=== PATIENT | female | born 1970 | race American Indian/Alaskan Native ===

== ENCOUNTER 2021-03-06 06:48 | Day surgery (SDC) | payer BC, OTHER ==
--- NOTE | 2021-03-03 12:16 | Anesthesia Consultation ---
<NANDO COLIN - Last Filed: 03/03/21 12:14> Anesthesia Consult and Med Hx Date of service: 03/03/21 - Airway Anesthetic Teeth Evaluation: Good ROM Head & Neck: Adequate Mental/Hyoid Distance: Adequate Mallampati Class: Class II - Pulmonary Exam CTA: Yes - Cardiac Exam Cardiac Exam: RRR - Pre-Operative Health Status ASA Pre-Surgery Classification: ASA2 Proposed Anesthetic Plan: General Nerve Block: TAP block - Central Nervous System CVA: Yes (6 years ago, unknown cause, heart,carotid cleared, no histroy of clots) Hx Psychiatric Problems: No - Other Systems Hx Alcohol Use: Yes (Occas) Hx Cancer: No <GINNA CABRERA - Last Filed: 03/06/21 07:53> Anesthesia Consult and Med Hx - Airway Anesthetic Teeth Evaluation: Good ROM Head & Neck: Adequate Mental/Hyoid Distance: Adequate Mallampati Class: Class II Intubation Access Assessment: Probably Good - Pre-Operative Health Status ASA Pre-Surgery Classification: ASA3 Proposed Anesthetic Plan: General Nerve Block: TAP - Pulmonary Hx Smoking: No - Cardiovascular System Hx Hypertension: No (BP elevated in preop; no hx HTN per patient) Hx Heart Attack/AMI: No - Central Nervous System 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
[2021-03-03 13:19] LABS: Basophils # (Auto) 0.1 K/mm3 (0.0-0.1); Basophils % (Auto) 1.1 % (0.0-1.8); Eosinophils # (Auto) 0.1 K/mm3 (0.0-0.4); Hematocrit 40.4 % (30.3-42.9); Hemoglobin 13.1 gm/dl (10.1-14.3); Lymphocytes # (Auto) 2.1 K/mm3 (1.2-5.4); Lymphocytes % (Auto) 41.5 % (13.4-35.0); Mean Corpuscular HGB Conc 32 % (30-34); Mean Corpuscular Volume 87 fl (79-97); Monocytes # (Auto) 0.4 K/mm3 (0.0-0.8); Platelet Count 300 K/mm3 (140-440); Red Blood Count 4.62 M/mm3 (3.65-5.03); Red Cell Distribution Width 14.9 % (13.2-15.2)
[2021-03-03 13:40] LABS: BUN/Creatinine Ratio 13; Blood Urea Nitrogen 10 mg/dL (7-17); Calcium 9.6 mg/dL (8.4-10.2); Hemolysis Index 3
--- NOTE | 2021-03-05 15:28 | History and Physical Report ---
History of Present Illness Date of examination: 03/03/21 History of present illness: Patient has been reassessed/reevaluated. H&P has been reviewed. No interval changes. This is a 50 years old female who presents with menstrual disorder. The symptoms began 6-12 months ago. She complains of irregular menses, heavy bleeding, dysmenorrhea, clotting, history of fibroids and cramping, but denies mid-cycle spotting, lack of menses, history of ovarian cysts, history of thyroid disease, history of PCOS, history of bleeding disorder, lightheadedness and fatigue. Patient reports that for pain she uses OCP's. The patient's uterine fibroids produces complains of abdominal pain, pelvic pain and pelvic pressure. Treatment tried to date includes NSAIDs. Patient's work up has included a transvaginal ultrasound which revealed large leiomyoma. Patient's symptoms when present disrupts her normal daily activities Patient desires definitive treatment ] Vital Signs: Patient Profile: 50 Years Old Female Height: 64 inches (162.56 cm) Weight: 208 pounds BMI: 35.70 Temp: 96.0 degrees F BP sittin / 70 (left arm) Current Method of Contraception: BTL Past History : 1 Term Births: 1 Premature Births: 0 Living Children: 1 Para: 1 Mult. Births: 0 Prev : 1 Aborta: 0 Elect. Ab: 0 Spont. Ab: 0 Ectopics: 0 # 1 Delivery date: 1995 Delivery type: Current Allergies: No known allergies Past Medical History: C V A / Stroke on OCP's BRCA negative Fibroids Past Surgical History: Tubal Ligation (10/06/2011) Family History Summary: - Has No Family History of Uterine Cancer - Entered On: 01/30/2017 - Has No Family History of Small Bowel Cancer - Entered On: 01/30/2017 Has No Family History of Pancreatic Cancer - Entered On: 01/30/2017 Other Family Member - Has No Family History of Ovarvian Cancer - Entered On: 01/30/2017 Other Family Member - Has No Family History of Kidney/Urinary Tract Cancer - Entered On: 01/30/2017 Other Family Member - Has No Family History of DVT/PE on OCP - Entered On: 01/30/2017 Other Family Member - Has No Family History of Colon Cancer - Entered On: 01/30/2017 Other Family Member - Has No Family History of Brain Cancer - Entered On: 01/30/2017 Other Family Member - Has No Family History of Biliary Tract Cancer - Entered On: 01/30/2017 MGM - Has Family History Breast Cancer - mggm, - Entered On: 09/08/2013 Aunt - Has Family History Breast Cancer - maternal and paternal - Entered On: 09/08/2013 General Comments - FH: No Family History of Colon Cancer No Family History of Ovarvian Cancer Social History: Patient is single Smoking History: Patient has never smoked. Risk Factors Tobacco use: never Passive smoke exposure: no HIV high risk behavior: no Seatbelt use: 100 % [employer] History Operations: Tubal Ligation (10/06/2011) Abnormal PAP: positive Uterine Anomaly: positive fibroids Infection History HIV Risk Eval: no Personal hx. of genital herpes: yes Hx of STD: HSV Review of Systems General Complains of fatigue. Denies fever, chills, sweats, anorexia, weakness, malaise, weight loss and sleep disorder. Complains of menorrhagia, pelvic pain and painful periods. Denies vaginal discharge, incontinence, dysuria, hematuria, urinary frequency, amenorrhea, abnormal vaginal bleeding, genital sores, decreased libido, painful sex, urinary urgency, hot flashes, vaginal dryness, vaginal itching and vaginal odor. CV Denies chest pains, palpitations, syncope, dyspnea on exertion, orthopnea, PND and peripheral edema. Resp Denies cough, dyspnea at rest, excessive sputum, hemoptysis, wheezing and pleurisy. GI Denies nausea, vomiting, diarrhea, constipation, change in bowel habits, abdominal pain, melena, hematochezia, jaundice, gas/bloating, indigestion/heartburn, dysphagia and odynophagia. Breast Denies left breast lump, right breast lump, nipple discharge, bloody discharge from nipple, breast pain, abnormal mammogram and breast enlargement. Psych Denies depression, anxiety, irritability and mood swings. Past History Past Medical History: other (SEE HPI) Past Surgical History: Other (SEE HPI) Social history: full code, other (SEE HPI) Family history: other (SEE HPI) Medications and Allergies Allergies Allergy/AdvReac Type Severity Reaction Status Date / Time No Known Allergies Allergy Unverified 02/25/21 15:43 Home Medications Medication Instructions Recorded Confirmed Last Taken Type Aspirin [Adult Aspirin] 81 mg PO DAILY 02/25/21 02/25/21 02/04/21 History Active Meds: Active Medications Acetaminophen (Acetaminophen 500 Mg Tab) 1,000 mg PO PREOP JESSY Celecoxib (Celecoxib 200 Mg Cap) 200 mg PO PREOP NR Stop: 03/06/21 23:59 Fentanyl (Fentanyl 100 Mcg/2 Ml Inj) 100 mcg IV ONCE PRN PRN Reason: sedation for nerve block Gabapentin (Gabapentin 300 Mg Cap) 300 mg PO PREOP NR Stop: 03/06/21 23:59 Cefazolin Sodium (Ancef/Sterile Water 2 Gm/20 Ml) 2 gm in 20 mls @ 80 mls/hr IV PREOP NR; Protocol Stop: 03/06/21 20:00 Lactated Ringer's (Lactated Ringers) 1,000 mls @ 100 mls/hr IV DIRECT JESSY Stop: 03/06/21 23:59 Methocarbamol 1,000 mg/ Sodium (Chloride) 260 mls @ 250 mls/hr IV PREOP JESSY Midazolam HCl (Midazolam 2 Mg/2 Ml Inj) 2 mg IV PREOP NR Stop: 03/06/21 23:59 Scopolamine (Scopolamine Transdermal Patch 72 Hr) 1 each TD PREOP NR Stop: 03/06/21 23:59 Review of Systems Constitutional: other (SEE HPI) Exam - Physical Exam Narrative exam: HEENT: normocephalic, no lesions or deformities Skin no ulcers, xanthomas Chest: respiratory effort normal, clear to auscultation Breasts: skin/areolae normal, no masses, no nipple discharge, no erythema/warmth/tenderness, and axillae normal. CV: regular, normal S1-S2, no murmur, no rub, no gallop Abdomen: obese normal bowel sounds, soft, nontender, no HSM Well healed pfa nnenstiel scar Neuro: no gross anomalities Extremities: no clubbing, cyanosis, or edema [employer] Exams Vulva/Vagina: No lesions, normal BUS, normal rugae Cervix: normal appearance, no lesions, no discharge Uterus: Enlarged uterus 12 to 14 weeks size Adnexae: no masses or tenderness Rectovaginal: exam defered - Constitutional Vitals: Temp Pulse Resp BP Pulse Ox 98.2 F 75 20 168/70 99 03/03/21 11:45 03/03/21 11:45 03/03/21 11:45 03/03/21 11:45 03/03/21 11:45 Results - Labs CBC & Chem 7: 03/03/21 06:00 03/03/21 06:00 Assessment and Plan - Patient Problems (1) Intramural leiomyoma of uterus Current Visit: No Status: Acute Plan to address problem: Diagnosis explained to patient . Questions answered. Discussed with patient various medical, surgical and radiological therapies common for treatment including expectant management, myomectomy hysterectomy and uterine artery embolization Patient desires robotic assisted total hysterectomy. Consent reviewed and signed . The risks and alternatives for this surgery were reviewed with the patient. Discuss the risks of the surgery including infection, bleeding possibly heavy enough to require a blood transfusion, possible damage to bowel, bladder or ureter. Patient understand that this surgery with make her sterile.Patient understands if her ovaries are removed she will become menopausal. Also if unable to complete robitcally a laparotomy may be required. Patient understands her risks of adjacent organ damage is increased due to her previous surgery(ies) Patient understands and desires to proceed. (2) Dysmenorrhea Current Visit: No Status: Acute Plan to address problem: Probably secondary to # 1 (3) Excessive and frequent menstruation with regular cycle Current Visit: No Status: Acute Plan to address problem: Probably secondary to # 1 (4) Herpes genitalis Current Visit: No Status: Chronic Qualifiers: Herpes simplex infection site: vulvovaginitis Qualified Code(s): A60.04 - Herpesviral vulvovaginitis (5) BMI over 35 Current Visit: No Status: Chronic Plan to address problem: Patient has been advised that obesity does increase risks of surgical and risks of post operative complications.
[~2021-03-06 06:48] MED LIST: ACETAMINOPHEN 500 MG TAB PO NR; ACETAMINOPHEN 500 MG TAB PO SCH; BUPIVACAINE/PF (0.5%) 5 MG/1 ML 10 ML VIAL INFILTRATI NR; CELECOXIB 200 MG CAP PO NR; GABAPENTIN 300 MG CAP PO NR; LACTATED RINGERS 1,000 ML IV SCH; LIDOCAINE (1%) 10 MG/1 ML VIAL 20 ML MDV INFILTRATI NR; MIDAZOLAM 2 MG/2 ML INJ IV NR; SCOPOLAMINE TRANSDERMAL PATCH 72 HR TD NR; fentaNYL 100 MCG/2 ML INJ IV ONE; fentaNYL 100 MCG/2 ML INJ IV PRN; methOCARBAMOL 1,000 MG in SODIUM CHLORIDE 0.9% 250ML 250 ML IV SCH
[2021-03-06] MEDS ORDERED: ceFAZolin/Water 2 GM/20 ML 2 GM/20 ML SYRINGE IV NR (07:00)
[2021-03-06] MEDS ORDERED: ONDANSETRON 4 MG/2 ML INJ ONE (07:48)
[2021-03-06] MEDS ORDERED: ROCURONIUM 50 MG/5 ML INJ IV ONE ×2 (07:48→11:13)
[2021-03-06] MEDS ORDERED: LIDOCAINE MPF (2%) 20 MG/1 ML VIAL 5 ML ONE (07:48)
[2021-03-06] MEDS ORDERED: propofoL 200 MG/20 ML VIAL IV ONE (07:49)
[2021-03-06] MEDS ORDERED: KETAMINE/STERILE WATER 50 MG/ML SYRINGE ONE (07:49)
--- NOTE | 2021-03-06 07:54 | Anesthesia Day of Surgery ---
Anesthesia Day of Surgery - Day of Surgery Patient Examined: Yes Patient H&P Reviewed: Yes Patient is NPO: Yes
[2021-03-06] MEDS ORDERED: dexAMETHasone 4 MG/ML VIAL ONE (08:00)
[2021-03-06] MEDS ORDERED: BUPIVACAINE/PF (0.25%) 2.5 MG/ML 30 ML VIAL INFILTRATI ONE (08:00)
[2021-03-06] MEDS ORDERED: oxyCODONE /ACETAMINOPHEN 5-325MG TAB PO PRN (08:00)
[2021-03-06] MEDS ORDERED: HYDROmorphone 1 MG/1 ML INJ IV PRN (08:00)
[2021-03-06] MEDS ORDERED: NEOMY 40 MG/POLYMYXIN B 200,000 UNITS/ML (GU) AMPULE IR ONE ×2 (08:32→09:17)
[2021-03-06] MEDS ORDERED: fentaNYL 100 MCG/2 ML INJ ONE (09:00)
[2021-03-06] MEDS ORDERED: SODIUM CHLORIDE 0.9% IRRIG SOLN 2000 ML IR ONE (09:17)
[2021-03-06] MEDS ORDERED: SODIUM CHLORIDE 0.9% IRR 1,500 ML BOTTLE IR ONE (09:17)
[2021-03-06] MEDS ORDERED: ePHEDrine SULFATE 50 MG/1 ML INJ ONE (09:30)
[2021-03-06] MEDS ORDERED: SODIUM CHLORIDE P/F VIAL 10 ML 0 ML ONE (10:19)
[2021-03-06] MEDS ORDERED: METHYLENE BLUE 50 MG/10 ML AMP ONE (10:19)
[2021-03-06] MEDS ORDERED: METHYLENE BLUE 50 MG/10 ML AMP IRRIGATION ONE (10:22)
[2021-03-06] MEDS ORDERED: LACTATED RINGERS 1,000 ML ONE (10:31)
[2021-03-06] MEDS ORDERED: SUGAMMADEX SODIUM 200 MG/2 ML VIAL IV ONE (10:35)
[2021-03-06] MEDS ORDERED: HYDROmorphone 1 MG/1 ML INJ ONE (11:13)
[2021-03-06] MEDS ORDERED: HYDROcodone/ACETAMINOPHEN 5-325 MG TAB PO PRN (12:06)
[2021-03-06] MEDS ORDERED: ACETAMINOPHEN 325 MG TAB PO PRN (12:06)
--- NOTE | 2021-03-06 12:25 | Operative Report ---
Operative Report Operative Report: Date of procedure: March 06, 2021 Pre-operative diagnosis: Symptomatic leiomyomata with pelvic pain menorrhalgia dysmenorrhea Post-operative diagnosis: Same plus pelvic adhesive disease left ovarian cyst Procedure name(s):Robotic Assisted Total Hysterectomy with bilateral salpingectomy, drainage of ovarian cyst and lysis of adhesions Surgeon: Shyam Perez MD [employer] Head: Shonda Capellan, certified public accountant Anesthesia: General EBL: 200 cc Complications: None Findings: Patient with uterus approximately 16 to 18 weeks in size with multiple leiomyomata the largest approximately 12 to 14 cm in diameter patient with adhesions of the anterior uterus to the bladder also patient's posterior cul-de-sac patient also with approximately 3-1/2 cm cyst on left ovary Specimen(s): Uterus with bilateral fallopian tubes and leiomyomata Procedure: Patient was brought to the operating room where general anesthesia was induced without difficulty. Patient was placed in the dorsal lithotomy position. Prepped and draped in the usual sterile manner for robotic procedure. Harp ca theter was placed without difficulty. Speculum was placed in the vagina. A medium V-Care Uterine manipulator was placed without difficulty. Attention was now switched to the patient's abdomen. A vertical supra-umbilicus incision was made with a scalpel. A 10-12 trocar was placed in this incision under direct visualization. Intra-abdominal placement was verified with no evidence of internal organ damage. The patient was insufflated approximately 3-1/2 L of CO2 gas. She was placed in Trendelenburg position. The patient pelvic findings were noted as above. It was determined that the patient was a candidate for robotic procedure. On both sides the umbilical incision at about 8 cm, incisions were made for robotic trocars. Each robotic trocar was placed under direct visualization with no evidence of internal organ damage. One 5 mm trocar was placed 2 fingerbreadths above the right iliac crest. A 5 mm camera was placed in the right lower quadrant trocar, the 10-12 trocar was removed and a Julius Varghese laparoscopic port closure device was placed through this incision under direct visualization with no evidence of internal organ damage. The camera was then replaced into this port. At this time the patient was placed in extreme Trendelenburg. The hereO Sheron robot was then docked on the patient's left side. The trocars connected to the robot appropriately robotic instruments were placed under direct visualization no evidence of internal organ damage.. At this time I took my place under the robotic operating young. Starting on the patient's right side the ureter was identified and found to be out of the operative field. Using the robotic vessel sealer the mesosalpinx under the fallopian tube were cauterized and cut starting from the distal end. Utero-ovarian complex was then cauterized and cut. This was followed by cauterizing and cutting the right fallopian tube and right round ligament. The broad ligament was then opened. The bladder flap was formed anteriorly to lysis of adhesions freeing the bladder. The posterior broad ligament was then excised. The uterine vessels were skeletonized. The ureter was not clearly seen due to the thickened peritoneum. Methylene blue was given intravenously. Throughout the case the patient had no spillage of dye intro abdominally and with dye clearly seen in the Harp catheter. The bladder was pushed away from the anterior uterus. The right uterine vessels were then cauterized and cut. Attention was then switched to the patient's left side. The same procedure was repeated on the left side with perform the salpingectomy followed by isolating the uterine vessels cauterized and cutting and completing the bladder flap from the left side at the lysis of adhesions. At this time the uterus was appearing very cyanotic. After inspecting the bladder flap to insured no evidence of bladder injury, the colpotomy was then started posteriorly. Incision started at 6:00 until the V-Care could be seen. This incision was extended from 6:00 to 9:00. Then from 6:00 to 3:00. Then from 9:00 to 12:00. This incision was extended from 3:00 to 12:00. At this time colpotomy was complete with no evidence of adjacent organ damage. Large leiomyomata made it necessary to remove incised the myomas from the uterus in order to accommodate the size of the colpotomy. The large myoma was then excised using cautery. With the removal of this myoma of the remaining uterus could be removed through the compatibility site body clerical dentist assistant. The large myoma had to be cut again to accommodate the size and then the clerical dentist assistant remove the excised myomas through the colpotomy site. The vaginal cuff was irrigated and cauterized and found to be hemostatic. The cuff was closed with roboticly using 0 V- Lock suture. This closure was hemostatic after irrigation and Bovie. All pedicles were inspected and found to be hemostatic. The patient had clear urine in the Harp catheter with no evidence of mixture with blood. Surgicel powder was placed on the cuff and pedicles for postoperative hemostasis . All instruments were then removed. The large trocar sites were closed in layers 2-0 Vicryl and 4-0 Monocryl. The smaller incisions were closed subcuticularly with 4-0 Monocryl. Dermabond was placed over the skin incisions. The patient tolerated procedure well. She was awakened in the operating room and accompanied to the recovery room in good condition.
--- NOTE | 2021-03-06 16:21 | Event Note ---
Date: 03/06/21 No voidfeels good
--- NOTE | 2021-03-06 16:23 | Short Stay Summary ---
Short Stay Documentation Date of service: 03/06/21 - History Principal diagnosis: Symptomatic leiomyomata Past Medical History: other (SEE HPI) Past Surgical History: Other (SEE HPI) Social history: full code, other (SEE HPI) - Allergies and Medications Current Medications: Allergies No Known Allergies Allergy (Unverified 02/25/21 15:43) Home Medications Medication Instructions Recorded Confirmed Last Taken Type Aspirin [Adult Aspirin] 81 mg PO DAILY 02/25/21 02/25/21 02/04/21 History Active Medications Acetaminophen (Acetaminophen 500 Mg Tab) 1,000 mg PO PREOP JESSY Last Admin: 03/06/21 07:00 Dose: 1,000 mg Acetaminophen (Acetaminophen 325 Mg Tab) 650 mg PO Q4H PRN PRN Reason: Pain MILD(1-3)/Fever >100.5/SAUER Hydrocodone Bitart/Acetaminophen (Hydrocodone/Acetaminophen 5-325 Mg Tab) 2 each PO Q6H PRN PRN Reason: Pain, Moderate (4-6) Celecoxib (Celecoxib 200 Mg Cap) 200 mg PO PREOP NR Stop: 03/06/21 23:59 Last Admin: 03/06/21 07:00 Dose: 200 mg Fentanyl (Fentanyl 100 Mcg/2 Ml Inj) 100 mcg IV ONCE PRN PRN Reason: sedation for nerve block Last Admin: 03/06/21 08:13 Dose: 100 mcg Gabapentin (Gabapentin 300 Mg Cap) 300 mg PO PREOP NR Stop: 03/06/21 23:59 Last Admin: 03/06/21 07:00 Dose: 300 mg Hydromorphone HCl (Hydromorphone 1 Mg/1 Ml Inj) 0.5 mg IV Q10MIN PRN PRN Reason: Pain , Severe (7-10) Stop: 03/06/21 18:00 Cefazolin Sodium (Ancef/Sterile Water 2 Gm/20 Ml) 2 gm in 20 mls @ 80 mls/hr IV PREOP NR; Protocol Stop: 03/06/21 20:00 Lactated Ringer's (Lactated Ringers) 1,000 mls @ 100 mls/hr IV DIRECT JESSY Stop: 03/06/21 23:59 Last Admin: 03/06/21 06:40 Dose: 100 mls/hr Methocarbamol 1,000 mg/ Sodium (Chloride) 260 mls @ 250 mls/hr IV PREOP JESSY Midazolam HCl (Midazolam 2 Mg/2 Ml Inj) 2 mg IV PREOP NR Stop: 03/06/21 23:59 Last Admin: 03/06/21 08:13 Dose: 2 mg Oxycodone/Acetaminophen (Oxycodone /Acetaminophen 5-325mg Tab) 1 tab PO ONCE PRN PRN Reason: Pain, Moderate (4-6) Stop: 03/06/21 18:00 Scopolamine (Scopolamine Transdermal Patch 72 Hr) 1 each TD PREOP NR Stop: 03/06/21 23:59 Last Admin: 03/06/21 07:00 Dose: 1 each - Physical exam General appearance: no acute distress Integumentary: no rash HEENT: Atraumatic Lungs: Normal air movement Breasts: deferred Heart: Regular rate Gastrointestinal: hypoactive bowel sounds, tenderness (Appropriate day of surgery), distended (Appropriate post robotic surgery) Female Genitourinary: normal Rectal Exam: deferred Extremities: no ischemia Neurological: Normal speech, Normal tone - Brief post op/procedure progress note Date of procedure: 03/06/21 (See dictated operative note for details) Condition: stable - Disposition Condition at discharge: Good Disposition: 01 HOME / SELF CARE / HOMELESS - Discharge Diagnoses (1) Intramural leiomyoma of uterus Status: Acute (2) Dysmenorrhea Status: Acute (3) Excessive and frequent menstruation with regular cycle Status: Acute (4) Herpes genitalis Status: Chronic Qualifiers: Herpes simplex infection site: vulvovaginitis Qualified Code(s): A60.04 - Herpesviral vulvovaginitis (5) BMI over 35 Status: Chronic Short Stay Discharge Plan Additional Instructions: WOUND:OPEN TO AIR.MAY SHOWER, DO NOT RUB OR SCRUB INCISION SITE. PAT DRY. NOTHING PER VAGINA-NO SEX, NO DOUCHE, NO BATH. NO TAMPONS. MAY USE SANITARY PADS. REMOVE SCOPOLAMINE BEHIND LEFT EAR IN 24-72 HOURS-USE GLOVES AND WASH HANDS. THOROUGHLY. Follow up with: GILDA JOSE MD [Primary Care Provider] - 7 Days Forms: Outpatient Surgery DC Inst.
--- NOTE | 2021-03-06 16:34 | Post Anesthesia Evaluation ---
- Post Anesthesia Evaluation Patient Participated: Yes Airway Patent: Yes Stable Respiratory Function: Yes Nausea/Vomiting: No Temp > 96.8F: Yes Pain Manageable: Yes Adequeate Hydration: Yes Anesthesia Complications: No Other Comments: Patient ambulated with minimal assistance and voided prior to d/c.
[2021-03-06 16:58] VITALS: BP 149/75
== END 2021-03-06 17:55 | disposition home or self-care (01) ==
LOC: OR 06:48
PROVIDERS: ATTEND Obstetrics & Gynecology
DX: D25.1 Intramural leiomyoma of uterus (principal); N94.5 Secondary dysmenorrhea; N83.202 Unspecified ovarian cyst, left side; Z98.51 Tubal ligation status; Z98.890 Other specified postprocedural states; Z79.899 Other long term (current) drug therapy; Z72.89 Other problems related to lifestyle; Z20.822 Contact with and (suspected) exposure to COVID-19
CPT/HCPCS: 36415; 58573; 64488; 80048; 84703; 85025; 86850; 86900; 86901; 88302; 88307; J0690; J1100; J1170; J2250; J2405; J2704; J2800; J3010; J3490; J7050; J7120; Q9968; S2900; U0003; 64450